=== PATIENT | female | born 2000 | race Hispanic/Latino ===

== ENCOUNTER 2022-04-29 11:40 | Outpatient (CLI) | payer OTHER | END 2022-04-29 11:41 | disposition home or self-care (01) | LOC: CSHLAB 11:40 | PROVIDERS: ATTEND Obstetrics & Gynecology | DX: Z20.822 Contact with and (suspected) exposure to COVID-19 (principal) | CPT/HCPCS: 87811 ==

== ENCOUNTER 2022-05-02 06:22 | Inpatient (IN) | payer OTHER ==
[2022-05-02 07:05] VITALS: BMI 35.6
[2022-05-02] MEDS ORDERED: Bupivacaine 0.25% HCL 30 ML VIAL ONE (08:00)
[2022-05-02] MEDS ORDERED: Butorphanol Tartrate 1 MG/ML VIAL SLOW IVP PRN (08:15)
[2022-05-02] MEDS ORDERED: Promethazine HCl 25 MG/ML VIAL IM PRN (08:15)
[2022-05-02] MEDS ORDERED: hydrALAZINE 20 MG/ML VIAL SLOW IVP PRN (08:15)
[2022-05-02] MEDS ORDERED: Acetaminophen 500 MG TAB PO PRN (08:15)
[2022-05-02] MEDS ORDERED: Ondansetron PF 4 MG/2 ML Vial IVP PRN (08:15)
[2022-05-02] MEDS ORDERED: NS w/ Oxytocin 30 units 500 ML IVPB SCH (08:30)
[2022-05-02] MEDS ORDERED: Lidocaine 1% (PF) 30 ML VIAL SC PRN (08:30)
[2022-05-02] MEDS ORDERED: NS w/ Oxytocin 30 units 500 ML IV SCH (08:30)
[2022-05-02 09:11] LABS: Hemoglobin 12.1 g/dL (12.0-15.5); Mean Corpuscular HGB CONC 34.2 g/dL (32.0-36.0); Mean Corpuscular Hemoglobin 29.9 pg (27.0-33.0); Mean Corpuscular Volume 87.4 fl (81.6-98.3); Mean Platelet Volume 10.2 fl (7.4-10.4); Platelet Count 214 10x3/uL (150-450); RBC Distribution Width 12.9 % (11.5-14.5); Red Blood Cell (RBC) Count 4.05 10x6/uL (3.90-5.03); White Blood Cell (WBC) Count 8.8 10x3/uL (3.5-10.5)
[2022-05-02 09:44] LABS: Syphilis Antibody Nonreactive (Nonreactive); Syphilis Antibody Index 0.05 S/CO (<1.00 Non-Reactive)
[2022-05-02 12:16] LABS: Hep B Surf Ag Non-Reactive S/CO (NonReactive)
[2022-05-02 13:25] LABS: HBSAg Index 0.25 S/CO (0-0.99)
[2022-05-03] MEDS: Lactated Ringer's 1,000 ML IV SCH ×4 (07:32→17:25)
[2022-05-03] MEDS ORDERED: Lidocaine 1% (PF) 30 ML VIAL ONE (11:05)
[2022-05-03] MEDS ORDERED: Carboprost 250 MCG/ML AMP ONE (11:06)
[2022-05-03] MEDS ORDERED: Methylergonovine 0.2 MG/ML VIAL ONE (11:06)
[2022-05-03] MEDS ORDERED: Fentanyl 2 mcg/Bup 0.1% Cadd 100 ML ONE (14:09)
[2022-05-03] MEDS ORDERED: Acetaminophen 325 MG TAB PO PRN (14:52)
[2022-05-03] MEDS ORDERED: Ondansetron PF 4 MG/2 ML Vial IVP PRN ×2 (14:52→18:37)
[2022-05-03] MEDS ORDERED: Moisturizing Cream (Eucerin) 113 GM JAR TOP PRN (14:52)
[2022-05-03] MEDS ORDERED: diphenhydrAMINE 50 MG/ML VIAL IVP PRN (14:52)
[2022-05-03] MEDS ORDERED: Promethazine HCl 25 MG/ML VIAL IM PRN ×2 (14:52→18:37)
[2022-05-03] MEDS ORDERED: ePHEDrine Sulfate 50 MG/10 ML VIAL SLOW IVP PRN (14:52)
[2022-05-03] MEDS ORDERED: Lactated Ringer's 500 ML IV PRN (14:52)
[2022-05-03] MEDS ORDERED: Naloxone HCl 0.4 mg/ml Vial IVP PRN ×2 (14:52)
[2022-05-03] MEDS ORDERED: Communication Order-Pharmacy FS SCH (15:00)
[2022-05-03] MEDS ORDERED: Fentanyl 2 mcg/Bupivacaine 0.1% Cassette 100 ML EPIDURAL SCH (15:00)
[2022-05-03] MEDS: Misoprostol 200 MCG TAB ONE (17:24)
[2022-05-03] MEDS ORDERED: Lanolin Ointment 7 GM TUBE TOP PRN (18:37)
[2022-05-03] MEDS ORDERED: Bisacodyl 10 MG SUPP PR PRN (18:37)
[2022-05-03] MEDS ORDERED: Milk Of Magnesia 30 ML UDCUP PO PRN (18:37)
[2022-05-03] MEDS ORDERED: Preparation H Ointment 28 GM TUBE PR PRN (18:37)
[2022-05-03] MEDS ORDERED: diphenhydrAMINE 25 MG CAP PO PRN (18:37)
[2022-05-03] MEDS ORDERED: NS w/ Oxytocin 30 units 500 ML IV SCH (18:37)
[2022-05-03] MEDS ORDERED: Varicella virus, LIVE 0.5 ML VIAL SC ONE (18:37)
[2022-05-03] MEDS ORDERED: hydrALAZINE 20 MG/ML VIAL SLOW IVP PRN (18:37)
[2022-05-03] MEDS ORDERED: HYDROcodone/Acetaminophen 5/325 mg Tablet PO PRN (18:37)
[2022-05-03] MEDS ORDERED: Boostrix 0.5 ML (Tdap) VIAL IM ONE (18:37)
[2022-05-03] MEDS ORDERED: Zolpidem Tartrate 5 MG TAB PO PRN (18:37)
[2022-05-03] MEDS ORDERED: Methylergonovine 0.2 MG/ML VIAL IM PRN (18:37)
[2022-05-03] MEDS ORDERED: Measles/Mumps/Rubella 10 MCG/0.5 ML VIAL SC ONE (18:37)
[2022-05-03] MEDS: Ibuprofen 800 MG TAB PO SCH (20:54)
[2022-05-03] MEDS: Docusate 100 MG CAP PO SCH (20:54)
[2022-05-04 05:09] LABS: Hemoglobin 10.7 g/dL (12.0-15.5); Mean Corpuscular HGB CONC 34.2 g/dL (32.0-36.0); Mean Corpuscular Hemoglobin 29.8 pg (27.0-33.0); Mean Corpuscular Volume 87.2 fl (81.6-98.3); Mean Platelet Volume 10.4 fl (7.4-10.4); Platelet Count 206 10x3/uL (150-450); RBC Distribution Width 12.6 % (11.5-14.5); Red Blood Cell (RBC) Count 3.59 10x6/uL (3.90-5.03); White Blood Cell (WBC) Count 16.4 10x3/uL (3.5-10.5)
[2022-05-04] MEDS: Ibuprofen 800 MG TAB PO SCH ×3 (05:11→21:48)
[2022-05-04] MEDS: Ferrous Sulfate 325 MG TAB PO SCH ×2 (07:22→17:39)
[2022-05-04] MEDS: Prenatal Vitamin 1 TAB PO SCH (09:28)
[2022-05-04] MEDS: Docusate 100 MG CAP PO SCH ×2 (09:28→21:48)
[2022-05-05] MEDS: Ibuprofen 800 MG TAB PO SCH ×2 (06:19→13:47)
[2022-05-05 07:52] VITALS: BP 112/69; TEMP 97.9
[2022-05-05] MEDS: Ferrous Sulfate 325 MG TAB PO SCH (08:49)
[2022-05-05] MEDS: Docusate 100 MG CAP PO SCH (08:49)
[2022-05-05] MEDS: Prenatal Vitamin 1 TAB PO SCH (08:49)
== END 2022-05-05 15:00 | disposition home or self-care (01) | DRG 807 ==
LOC: CSHLD 06:22 → CSHPED 05-03 18:45
PROVIDERS: ADMIT Obstetrics & Gynecology; ATTEND Obstetrics & Gynecology
PROC: 10E0XZZ Delivery of Products of Conception, External Approach (ICD-10-PCS; principal; 2022-05-03)
DX: O70.0 First degree perineal laceration during delivery (principal); Z37.0 Single live birth; Z3A.39 39 weeks gestation of pregnancy
CPT/HCPCS: 36415; 51702; 85027; 86780; 86850; 86900; 86901; 87340; 90715; J2590; J7120; S0020

== ENCOUNTER 2022-08-08 17:13 | Emergency (ER) | payer OTHER | END 2022-08-08 18:55 | disposition home or self-care (01) | LOC: CSHERS 17:13 | DX: M25.531 Pain in right wrist (principal) ==

== ENCOUNTER 2022-10-27 00:19 | Emergency (ER) | payer OTHER ==
[2022-10-27] MEDS ORDERED: Mag-Al Plus 1200 MG/1200 MG/120 MG/30 ML UDCUP ONE (00:58)
[2022-10-27] MEDS ORDERED: Lidocaine Viscous Sol 2% 15 ml UD Cup ONE (00:58)
[2022-10-27] MEDS ORDERED: Ketorolac Tromethamine 30 MG/ML VIAL ONE (00:58)
[2022-10-27 01:03] LABS: #Basophils 0.1 10x3/uL (0.0-0.2); #Eosinphils 0.5 10x3/uL (0.0-0.5); #Monocytes 0.7 10x3/uL (0.0-1.1); #Neutrophils 4.8 10x3/uL (1.5-8.4); %Basophils 0.5 % (0.0-2.0); %Eosinophils 4.5 % (0.0-6.0); %Lymphocytes 45.8 % (18.0-47.0); %Monocytes 6.5 % (0.0-10.0); %Neutrophils 42.3 % (40.0-75.0); Hemoglobin 13.7 g/dL (12.0-15.5); Mean Corpuscular HGB CONC 33.7 g/dL (32.0-36.0); Mean Corpuscular Hemoglobin 28.9 pg (27.0-33.0); Mean Corpuscular Volume 85.7 fl (81.6-98.3); Platelet Count 326 10x3/uL (150-450); RBC Distribution Width 11.9 % (11.5-14.5); Red Blood Cell (RBC) Count 4.74 10x6/uL (3.90-5.03); White Blood Cell (WBC) Count 11.2 10x3/uL (3.5-10.5)
[2022-10-27 01:08] LABS: ALT (SGPT) 29 U/L (8-55); AST (SGOT) 25 U/L (5-34); Albumin 4.2 g/dL (3.5-5.0); Alkaline Phosphatase 61 U/L (40-110); Anion Gap 12 mmol/L (10-20); BUN (Urea Nitrogen) 9 mg/dL (7.0-18.7); Bilirubin, Total 0.3 mg/dL (0.2-1.2); Calc. Creatinine Clearance 0 mL/min (70-130); Calcium 8.9 mg/dL (7.8-10.44); Carbon Dioxide 25 mmol/L (22-29); Chloride 104 mmol/L (98-107); Estimated GFR 110; Globulin 3.7 g/dL (2.4-3.5); Glucose 109 mg/dL (70-105); Lipase 31 U/L (8-78); Protein, Total 7.9 g/dL (6.0-8.3); Sodium 137 mmol/L (136-145)
== END 2022-10-27 02:37 | disposition home or self-care (01) ==
LOC: CSHERS 00:19
DX: K21.9 Gastro-esophageal reflux disease without esophagitis (principal)
CPT/HCPCS: 71045; 80053; 83690; 84484; 85025; 93005; 96374; J1885

== ENCOUNTER 2022-10-28 20:23 | Inpatient (IN) | payer OTHER ==
[~2022-10-28 20:23] MED LIST: Iopamidol 300 61% 100 ML VIAL FS ONE
[2022-10-28 21:42] LABS: #Basophils 0.1 10x3/uL (0.0-0.2); #Eosinphils 0.2 10x3/uL (0.0-0.5); %Basophils 0.4 % (0.0-2.0); %Eosinophils 1.4 % (0.0-6.0); %Lymphocytes 13.5 % (18.0-47.0); %Monocytes 6.2 % (0.0-10.0); %Neutrophils 78.2 % (40.0-75.0); Hemoglobin 15.8 g/dL (12.0-15.5); Mean Corpuscular HGB CONC 34.2 g/dL (32.0-36.0); Mean Corpuscular Hemoglobin 29.1 pg (27.0-33.0); Mean Corpuscular Volume 85.1 fl (81.6-98.3); Platelet Count 344 10x3/uL (150-450); RBC Distribution Width 12.2 % (11.5-14.5); Red Blood Cell (RBC) Count 5.43 10x6/uL (3.90-5.03); White Blood Cell (WBC) Count 15.4 10x3/uL (3.5-10.5)
[2022-10-28 21:56] LABS: ALT (SGPT) 673 U/L (8-55); AST (SGOT) 352 U/L (5-34); Albumin 4.4 g/dL (3.5-5.0); Alkaline Phosphatase 218 U/L (40-110); Anion Gap 14 mmol/L (10-20); BUN (Urea Nitrogen) 7 mg/dL (7.0-18.7); Bilirubin, Total 3.6 mg/dL (0.2-1.2); Calc. Creatinine Clearance 0 mL/min (70-130); Calcium 9.8 mg/dL (7.8-10.44); Carbon Dioxide 25 mmol/L (22-29); Chloride 104 mmol/L (98-107); Estimated GFR 109; Globulin 4.6 g/dL (2.4-3.5); Glucose 136 mg/dL (70-105); Potassium 3.9 mmol/L (3.5-5.1); Sodium 139 mmol/L (136-145)
[2022-10-28] MEDS ORDERED: Ondansetron PF 4 MG/2 ML Vial ONE (22:18)
[2022-10-28] MEDS ORDERED: Morphine 4 MG/ML VIAL ONE (22:18)
[2022-10-28 22:21] LABS: Lipase 11153 U/L (8-78)
[2022-10-29] MEDS ORDERED: Ondansetron PF 4 MG/2 ML Vial ONE (00:13)
[2022-10-29] MEDS ORDERED: Piperacillin/Tazobactam 3.375 GM VIAL ONE (00:13)
[2022-10-29] MEDS ORDERED: Morphine 4 MG/ML VIAL ONE (00:13)
[2022-10-29 02:52] LABS: SARS-CoV-2 NAA Rapid Test Not Detected (NotDetected)
[2022-10-29 03:51] VITALS: BMI 36.4
[2022-10-29] MEDS ORDERED: Morphine 2 MG/ML VIAL SLOW IVP PRN (05:17)
[2022-10-29] MEDS ORDERED: Lactated Ringer's 1,000 ML IV SCH (05:30)
[2022-10-29] MEDS ORDERED: Lactated Ringer's 500 ML IV SCH (05:30)
[2022-10-29] MEDS: Morphine 4 MG/ML VIAL SLOW IVP PRN ×3 (05:54→17:40)
[2022-10-29 06:21] LABS: #Basophils 0.1 10x3/uL (0.0-0.2); #Eosinphils 0.1 10x3/uL (0.0-0.5); #Monocytes 0.9 10x3/uL (0.0-1.1); #Neutrophils 12.1 10x3/uL (1.5-8.4); %Basophils 0.3 % (0.0-2.0); %Eosinophils 0.6 % (0.0-6.0); %Lymphocytes 16.5 % (18.0-47.0); %Monocytes 5.5 % (0.0-10.0); %Neutrophils 76.7 % (40.0-75.0); Hemoglobin 14.5 g/dL (12.0-15.5); Mean Corpuscular HGB CONC 33.5 g/dL (32.0-36.0); Mean Corpuscular Hemoglobin 28.6 pg (27.0-33.0); Mean Corpuscular Volume 85.4 fl (81.6-98.3); Mean Platelet Volume 8.9 fl (7.4-10.4); Platelet Count 330 10x3/uL (150-450); RBC Distribution Width 12.4 % (11.5-14.5); Red Blood Cell (RBC) Count 5.07 10x6/uL (3.90-5.03); White Blood Cell (WBC) Count 15.8 10x3/uL (3.5-10.5)
[2022-10-29 06:35] LABS: ALT (SGPT) 485 U/L (8-55); AST (SGOT) 164 U/L (5-34); Albumin 3.9 g/dL (3.5-5.0); Alkaline Phosphatase 191 U/L (40-110); Anion Gap 16 mmol/L (10-20); BUN (Urea Nitrogen) 7 mg/dL (7.0-18.7); Bilirubin, Total 2.4 mg/dL (0.2-1.2); Calc. Creatinine Clearance 206 mL/min (70-130); Carbon Dioxide 21 mmol/L (22-29); Chloride 107 mmol/L (98-107); Estimated GFR 126; Globulin 3.9 g/dL (2.4-3.5); Glucose 125 mg/dL (70-105); Magnesium 1.8 mg/dL (1.6-2.6); Potassium 3.5 mmol/L (3.5-5.1); Protein, Total 7.8 g/dL (6.0-8.3); Sodium 140 mmol/L (136-145)
[2022-10-29 06:51] LABS: Lipase 3888 U/L (8-78)
[2022-10-29] MEDS: Potassium Chloride 20 MEQ in Lactated Ringer's 1,000 ML IV SCH ×4 (07:09→23:22)
[2022-10-29] MEDS: Piperacillin/Tazobactam 3.375 GM in Sodium Chloride 0.9% 100 ML IVPB SCH ×3 (11:40→20:18)
[2022-10-30] MEDS: Morphine 4 MG/ML VIAL SLOW IVP PRN ×2 (00:32→05:41)
[2022-10-30] MEDS: Piperacillin/Tazobactam 3.375 GM in Sodium Chloride 0.9% 100 ML IVPB SCH ×2 (03:21→12:13)
[2022-10-30 03:55] LABS: #Eosinphils 0.2 10x3/uL (0.0-0.5); #Monocytes 1.1 10x3/uL (0.0-1.1); #Neutrophils 9.7 10x3/uL (1.5-8.4); %Basophils 0.3 % (0.0-2.0); %Eosinophils 1.3 % (0.0-6.0); %Lymphocytes 22.5 % (18.0-47.0); %Neutrophils 67.6 % (40.0-75.0); Hemoglobin 12.6 g/dL (12.0-15.5); Mean Corpuscular HGB CONC 33.6 g/dL (32.0-36.0); Mean Corpuscular Hemoglobin 28.7 pg (27.0-33.0); Mean Corpuscular Volume 85.4 fl (81.6-98.3); Platelet Count 256 10x3/uL (150-450); RBC Distribution Width 12.1 % (11.5-14.5); Red Blood Cell (RBC) Count 4.39 10x6/uL (3.90-5.03); White Blood Cell (WBC) Count 14.3 10x3/uL (3.5-10.5)
[2022-10-30 04:04] LABS: ALT (SGPT) 268 U/L (8-55); AST (SGOT) 46 U/L (5-34); Albumin 3.2 g/dL (3.5-5.0); Alkaline Phosphatase 150 U/L (40-110); Anion Gap 12 mmol/L (10-20); BUN (Urea Nitrogen) 6 mg/dL (7.0-18.7); Bilirubin, Total 1.5 mg/dL (0.2-1.2); Calc. Creatinine Clearance 223 mL/min (70-130); Calcium 8.2 mg/dL (7.8-10.44); Carbon Dioxide 21 mmol/L (22-29); Chloride 105 mmol/L (98-107); Estimated GFR 128; Globulin 3.3 g/dL (2.4-3.5); Glucose 88 mg/dL (70-105); Potassium 3.4 mmol/L (3.5-5.1); Protein, Total 6.5 g/dL (6.0-8.3); Sodium 135 mmol/L (136-145)
[2022-10-30] MEDS: Potassium Chloride 20 MEQ in Lactated Ringer's 1,000 ML IV SCH ×2 (05:41→09:33)
[2022-10-30] MEDS ORDERED: Pantoprazole 40 MG VIAL IVP SCH (07:30)
[2022-10-30] MEDS ORDERED: Fentanyl 100 MCG/2 ML VIAL ONE ×2 (08:22→09:36)
[2022-10-30] MEDS ORDERED: PROPOFOL 20 ML ONE (08:22)
[2022-10-30] MEDS ORDERED: Lidocaine 1% PF 5 ML VIAL ONE (08:25)
[2022-10-30] MEDS ORDERED: Dexamethasone 20 MG/5 ML VIAL ONE (08:25)
[2022-10-30] MEDS ORDERED: Ondansetron PF 4 MG/2 ML Vial ONE (08:25)
[2022-10-30] MEDS ORDERED: Ethanolamine Oleate 5% 2 ml Ampule ONE (08:32)
[2022-10-30] MEDS ORDERED: Bupivacaine/Epinephrine 0.25% 30 ML VIAL ONE (08:33)
[2022-10-30] MEDS ORDERED: Indomethacin 50 MG SUPP ONE (08:33)
[2022-10-30] MEDS ORDERED: Iopamidol 30 ML ONE (08:33)
[2022-10-30] MEDS ORDERED: Ketorolac Tromethamine 30 MG/ML VIAL ONE (09:38)
[2022-10-30] MEDS ORDERED: Glycopyrrolate 0.2 MG/ML 5 ML SYRINGE ONE (10:09)
[2022-10-30] MEDS ORDERED: Sodium Chloride 0.9% 100 ML ONE (12:04)
[2022-10-30] MEDS ORDERED: HYDROcodone/Acetaminophen 5/325 mg Tablet PO PRN (16:24)
[2022-10-30 16:55] VITALS: BP 97/55; TEMP 98.8
== END 2022-10-30 18:24 | disposition home or self-care (01) | DRG 417 ==
LOC: CSHERS 20:23 → CSHTELE 10-29 03:18
PROVIDERS: ADMIT Family Medicine; ATTEND Internal Medicine
PROC: 0FT44ZZ Resection of Gallbladder, Percutaneous Endoscopic Approach (ICD-10-PCS; principal; 2022-10-30)
PROC: BF121ZZ Fluoroscopy of Gallbladder using Low Osmolar Contrast (ICD-10-PCS; 2022-10-30)
DX: K80.00 Calculus of gallbladder with acute cholecystitis without obstruction (principal); K85.10 Biliary acute pancreatitis without necrosis or infection; Z20.822 Contact with and (suspected) exposure to COVID-19; E66.9 Obesity, unspecified; Z88.1 Allergy status to other antibiotic agents; Z79.899 Other long term (current) drug therapy; Z88.8 Allergy status to other drugs, medicaments and biological substances; Z68.36 Body mass index [BMI] 36.0-36.9, adult
CPT/HCPCS: 36415; 47531; 71045; 74177; 76705; 80053; 83690; 83735; 85025; 88304; 93005; 94760; 96361; 96365; 96375; 96376; C1889; C9113; J1100; J1430; J1611; J1650; J1885; J2270; J2405; J2543; J2704; J3010; J3480; J3490; J7120; Q9967; U0002